=== PATIENT | female | born 1960 | race Caucasian/White ===

== ENCOUNTER 2021-03-05 11:36 | Emergency (ER) | payer SELFPAY ==
[2021-03-05] VITALS (10 sets, daily range): BP systolic 115–158; BP diastolic 73–104; PULSE 62–118; RESP 16–22; TEMP 36.9; O2SAT 93–96; BMI 33.2
--- NOTE | 2021-03-05 12:32 | ED_ITS ---
HPI - Abdominal Pain General: Chief Complaint: Abdominal Pain Stated Complaint: Nausea, vomiting, cramping Time Seen by Provider: 03/05/21 12:29 History of Present Illness: HPI narrative: Ms. Alcaraz is a 61-year-old lady with history of breast cancer approximately 10 years ago and abdominal surgeries include cholecystectomy who presents emerged department due to abdominal pain, nausea, vomiting. She reports symptoms have been going on for a number of mo nths and started without specific known provoking factors including specifically denying insect bite or preceding antibiotic use. She has foamy emesis that occurs at least every other day in addition to generalized left lower quadrant abdominal pain that seems to migrate. She does have diarrhea associated with this that has also been present severe onset of symptoms. She has not tried any anyh-sbo-cjulajs therapies. She has seen a PCP but has not had imaging performed. Overall the course of symptoms has persisted. Intensity is moderate. She endorses worse symptoms with anything touching her abdomen. No other specific exacerbating or alleviating factors identified. Review of Systems General: Reports: 10 or more systems reviewed and unremarkable except in HPI and below Physical Exam Narrative: EXAM NARRATIVE: GENERAL/CONSTITUTIONAL -mildly ill-appearing. No acute distress. Eyes -pale mucous membranes, no conjunctival injection ENMT - Atraumatic external nose and ears. Moist mucous membranes NECK - supple. trachea midline CARDIOVASCULAR - regular rate and rhythm. Peripheral pulses 2+ and equal RESPIRATORY -clear to auscultation bilaterally. No retractions or accessory muscle use. ABDOMEN/GI -generalized tenderness palpation MSK - Extremities without obvious deformity or tenderness to palpation SKIN - Warm, Dry NEURO - alert and appropriately oriented. Moves all extremities equally. Course ED course: - Patient was seen and evaluated by me at bedside - Patient placed on cardiac monitors, IV access obtained - Initial evaluation notable for somewhat ill appearance, no acute distress. Abdominal tenderness to palpation without evidence of surgical abdomen. -Symptom treatment ordered - Labs notable for no leukocytosis, mild microcytosis. Minimal abnormalities noted on metabolic panel. - Imaging notable for likely colonic mass at splenic flexure with adjacent enlarged lymph node concerning for cancer. - I updated the patient regarding CT results including specifically telling her about concern for cancer. She was still somewhat symptomatic so I ordered additional treatment. - During course of additional treatment the patient was noted to have an episode of marked tachycardia of unclear etiology with heart rate in the 150s. This re solved after 3 to 4 minutes and unfortunately was not captured on EKG however was present on telemetry - Based on this and new cancer diagnosis CTA ordered which was negative for PE. - Despite fluids patient had a recurrent episode with exertion - I recommended further inpatient evaluation due to this cardiac abnormality without specific explanation identified on laboratory or imaging studies. - The patient declined admission at this time and elected to leave AGAINST MEDICAL ADVICE. Based on my interaction with the patient she is competent to make medical decisions at this time. I have discussed risks and benefits of the further evaluation and hospitalization that I feel is needed. Patient verbalized understanding and continued to decline admission. She understands that she may return to the emergency department or any emergency department at any time. I have arranged for follow-up in surgery clinic at the earliest possible appointment which is Tuesday. - Patient discharged in fair condition with unclear explanation for heart rate abnormality. Vital Signs: Vital signs: Vital Signs Temperature 98.4 F 03/05/21 21:40 Pulse Rate 62 03/05/21 21:40 Respiratory Rate 18 03/05/21 21:40 Blood Pressure 150/90 03/05/21 21:40 Pulse Oximetry 94 03/05/21 21:40 MDM - Abdominal Pain Medical Records: Attestation: I reviewed the patient's medical records. Lab Data: Attestation: I reviewed the patient's lab results. Labs: Lab Results 03/05/21 03/05/21 03/05/21 13:16 13:42 13:42 WBC 9.4 10^3/uL 10^3/ uL (4.0-10.0) RBC 5.41 10^6/uL H 10 ^6/uL (4.1-5.3) Hgb 13.1 g/dL g/dL (11.5-15.3) Hct 43.3 % % (37.0-47.0) MCV 80.0 fl L fl (81-99) MCH 24.2 pg L pg (28.0-34.0) MCHC 30.3 g/dL g/dL (30.0-36.0) RDW 17.2 % H % (12.1-15.1) Plt Count 472 10^3/cmm H 10 ^3/cmm (130-400) MPV 9.1 fL fL (7.4-10.4) Neut % (Auto) 77.7 % % Lymph % (Auto) 13.2 % % [place] % (Auto) 7.7 % % Eos % (Auto) 0.6 % % Baso % (Auto) 0.4 % % Neut # (Auto) 7.32 10^3/uL 10^3 /uL (1.8-7.7) Lymph # (Auto) 1.3 10^3/uL 10^3/ uL (0.8-4.8) [place] # (Auto) 0.7 10^3/uL 10^3/ uL (0.2-0.9) Eos # (Auto) 0.1 10^3/uL 10^3/ uL (0.0-0.8) Baso # (Auto) 0.0 10^3/uL 10^3/ uL (0.0-0.1) Nucleated RBC % (a uto) 0 % % Nucleated RBCs # 0.0 /100WBC /100W BC Sodium 135 mmol/L L mmol /L (136-145) Potassium 4.0 mmol/L mmol/L (3.5-5.1) Chloride 97 mmol/L L mmol/ L (98-107) Carbon Dioxide 26 mmol/L mmol/L (22-29) Anion Gap 16.0 (5-19) BUN 10 mg/dL mg/dL (8-23) Creatinine 0.6 mg/dL mg/dL (0.5-0.9) GFR Calculation 102.0 mL/min mL/m in (90-130) Glucose 135 mg/dL H mg/dL (65-115) Calculated Osmolal ity 281 mOsm/kg L mOs m/kg (285-295) Calcium 9.2 mg/dL mg/dL (8.5-10.5) Magnesium Total Bilirubin 0.5 mg/dL mg/dL (0.15-1.2) AST 18 U/L U/L (0-32) ALT 16 U/L U/L (0-33) Alkaline Phosphata se 91 IU/L IU/L (35-105) Troponin T Baselin e Troponin T 120 Min [place] Troponin T Total Protein 7.3 g/dL g/dL (6.6-8.7) Albumin 3.3 g/dL L g/dL (3.5-5.2) Globulin 4.0 g/dL g/dL (1.3-4.6) Lipase 8 U/L L U/L (13-60) Urine Color Dark yellow (Yellow) Urine Appearance Hazy A (CLEAR) Urine pH 5 (5-7) Ur Specific Gravit y 1.025 (1.005-1.030) Urine Protein Trace (Negative) Urine Glucose (UA) Norm (Normal) Urine Ketones 1+ H (Negative) Urine Blood 3+ H (Negative) Urine Nitrate Negative (Negative) Urine Bilirubin 2+ H (Negative) Urine Urobilinogen 4 mg/dL H mg/dL (Negative) Ur Leukocyte [place] ase Trace H (Negative) Urine RBC 0-4 /hpf H /hpf (0-2) Urine WBC 5-10 /hpf H /hpf (0-5) Ur Squamous Epith Cells 5-10 /hpf H /hpf (0-5) Calcium Oxalate Cr ystal 3+ /hpf /hpf Amorphous Sediment Not Reportable Urine Bacteria 1+ /hpf H /hpf (NONE) Urine Mucus 2+ /hpf /hpf 03/05/21 03/05/21 03/05/21 17:18 17:18 19:45 WBC RBC Hgb Hct MCV MCH MCHC RDW Plt Count MPV Neut % (Auto) Lymph % (Auto) [place] % (Auto) Eos % (Auto) Baso % (Auto) Neut # (Auto) Lymph # (Auto) [place] # (Auto) Eos # (Auto) Baso # (Auto) Nucleated RBC % (a uto) Nucleated RBCs # Sodium Potassium Chloride Carbon Dioxide Anion Gap BUN Creatinine GFR Calculation Glucose Calculated Osmolal ity Calcium Magnesium 1.8 mg/dL mg/dL (1.7-2.3) Total Bilirubin AST ALT Alkaline Phosphata se Troponin T Baselin e 11 ng/L H ng/L (0-10) Troponin T 120 Min [place] 11.98 ng/L H ng/L (0-10) Delta Troponin T 0.98 ABS# ABS# (0-10) Total Protein Albumin Globulin Lipase Urine Color Urine Appearance Urine pH Ur Specific Gravit y Urine Protein Urine Glucose (UA) Urine Ketones Urine Blood Urine Nitrate Urine Bilirubin Urine Urobilinogen Ur Leukocyte [place] ase Urine RBC Urine WBC Ur Squamous Epith Cells Calcium Oxalate Cr ystal Amorphous Sediment Urine Bacteria Urine Mucus EKG Data ^: EKG 1: EKG interpretation date: 03/05/21 EKG interpretation time: 17:03 Interpretation: Twelve-lead EKG shows a regular rhythm with a rate of 92 GA interval prolonged at 303, QRS duration 136, QTc 529 Left axis deviation Interpretation: First-degree AV block. Sinus rhythm. Bundle branch block. EKG 2: Attestation: I personally reviewed and interpreted this EKG as follows: EKG interpretation date: 03/05/21 EKG interpretation time: 19:48 Interpretation: Twelve-lead EKG shows a regular rhythm at a rate of 75. GA interval 233, QRS duration 138, QTc 467 Left axis deviation Interpretation: Sinus rhythm. First-degree AV block. Right bundle branch block. Discharge Plan Discharge Patient Disposition: Left Against Medical Advice Clinical Impression: Diarrhea, Abdominal pain, Mass of colon, Enlarged lymph node, Tachyarrhythmia, Abnormal ECG, Tachycardia Condition: Stable Prescriptions: New ondansetron 4 mg tablet,disintegrating 4 mg PO Q8H PRN (Reason: nausea and vomiting) 5 Days Qty: 15 RF: 0 No Action famotidine 10 mg tablet 10 mg PO BID PRN (Reason: Heartburn) RF: 0 Tylenol Ex Str Rapid Release 500 mg Tablet 1,000 mg PO DAILY PRN (Reason: Pain) RF: 0 ferrous sulfate [iron] 325 mg (65 mg iron) Tablet 325 mg PO DAILY PRN (Reason: unknown) RF: 0 ondansetron 4 mg tablet,disintegrating 4 mg PO Q12H PRN (Reason: Nausea And Vomiting) RF: 0 Referrals: Ruel Olmos MD [Physician] - 03/11/21 1:15 pm Uday Garner FNP [Primary Care Provider] - Discharge Diet: Clear Liquid Discharge Activity: Resume usual activity Patient Instructions: Abdominal Pain (ED) Activity Restrictions/Additional Instructions: Thank you for visiting the emergency department. You were seen and evaluated for diarrhea, fatigue, and abdominal pain. As discussed you have a very concerning mass on your colon and locally enlarged lymph nodes, additionally you have an indeterminate mass on your adrenal gland. The colon mass is very concerning for the possibility of cancer. This requires further evaluation. Follow-up with Dr. Olmos has been scheduled for Tuesday. Please be sure to make this appointment. As a somewhat incidental finding you were noted to have an abnormal EKG. Additionally your heart rate increases in a way that I would not expect and I do not have a complete explanation for. Therefore I recommend staying in the hospital for further evaluation with you are choosing to decline and leaving AGAINST MEDICAL ADVICE. Please ensure that you are staying hydrated. You will be given a prescription for nausea medication. Please return to the emergency department for any changes in symptoms, inability to pass gas or have a bowel movement, lightheadedness, dizziness, chest pain, shortness of breath, or anything else that you are concerned about and feel needs emergency department evaluation. Coding Level of Care Code ED General Neurologist for [facility]
--- NOTE | 2021-03-05 12:47 | PC.NURSE ---
Provider at bedside.
--- NOTE | 2021-03-05 12:54 | CTR_ITS ---
PROCEDURE INFORMATION: Exam: CT Abdomen And Pelvis With Contrast Exam date and time: 03/05/2021 12:54 PM Age: 61 years old Clinical indication: Abdominal pain; Additional info: Abdominal pain, n/v/d TECHNIQUE: Imaging protocol: Computed tomography of the abdomen and pelvis with contrast. Radiation optimization: All CT scans at this facility use at least one of these dose optimization techniques: automated exposure control; mA and/or kV adjustment per patient size (includes targeted exams where dose is matched to clinical indication); or iterative reconstruction. Contrast material: OMNI 350; Contrast volume: 95 ml; Contrast route: INTRAVENOUS (IV); COMPARISON: No relevant prior studies available. RADIATION DOSE METRICS: Total DLP (mGy-cm): 1696.88 FINDINGS: Lungs: Calcified granuloma noted in the right lung base. Liver: Hepatic steatosis. No mass. Gallbladder and bile ducts: Cholecystectomy. No ductal dilation. Pancreas: Normal. No ductal dilation. Spleen: Calcified granulomas noted in the spleen. No splenomegaly. Adrenal glands: There is a 2.6 x 2.3 cm right adrenal nodule which is indeterminate on single post-contrast phase study series 2, image 27. Kidneys and ureters: Normal. No hydronephrosis. Stomach and bowel: There is focal circumferential narrowing of the transverse colon at the area of the splenic flexure measuring roughly 3-4 cm. There is mucosal hyperenhancement all and wall thickening of the colon proximal is region as well as mild distension. The colon distal is region appears relatively decompressed compared to the rest of the colon. Findings raise suspicion for an underlying mass in this region with developing colonic obstruction. There is also a serpiginous structure adjacent to the mesenteric border the colon this region which has low internal attenuation resembling a thrombosed vessel series 2, image 30. There is also a low-attenuation lobulated mass in this region measuring 2.8 x 2.3 cm series 2, image 35 which raises suspicion for localized shorty metastasis. Several additional prominent lymph nodes are noted in this region for example, the 2nd largest node measures up to 1.4 cm in short axis series 2, image 44. Some fibrotic changes appear in this region as there appears to be tethering of a portion of the stomach to this region of the colon. Appendix: No evidence of appendicitis. Intraperitoneal space: Unremarkable. No free air. No significant fluid collection. Vasculature: Unremarkable. No abdominal aortic aneurysm. Lymph nodes: Please see stomach and bowel section. Urinary bladder: Unremarkable as visualized. Reproductive: Unremarkable as visualized. Bones/joints: No acute fracture. No aggressive osseous lesion. Soft tissues: Right breast implant noted. CT/CT abdomen pelvis w con* [id number] IMPRESSION: 1. Findings suspicious for focal stricturing and suspected underlying mass in the region of the transverse colon at the splenic flexure. This appears to be causing a low-grade colonic obstruction and there may be a superimposed colitis given mucosal hyperenhancement and wall thickening of the colon proximal to this location. In addition, there are findings suspicious for localized shorty metastasis and invasion of the adjacent mesenteric vessels. Would recommend further evaluation with colonoscopy. 2. Indeterminate 2.6 cm right adrenal nodule given suspected malignancy. This can be further evaluated with adrenal protocol CT/MRI. 3. Hepatic steatosis. Radiation Dose CTDIVOL = (mGy): DLP = 1696.88 (mGy-cm)
[2021-03-05 13:58] LABS: Basophils % 0.4 %; Eosinophils # 0.1 10^3/uL (0.0-0.8); Eosinophils % 0.6 %; Hematocrit 43.3 % (37.0-47.0); Hemoglobin 13.1 g/dL (11.5-15.3); Lymphocytes # 1.3 10^3/uL (0.8-4.8); Lymphocytes % 13.2 %; Mean Corpuscular HGB Conc 30.3 g/dL (30.0-36.0); Mean Corpuscular Hemoglobin 24.2 pg (28.0-34.0); Mean Platelet Volume 9.1 fL (7.4-10.4); Monocytes # 0.7 10^3/uL (0.2-0.9); Monocytes % 7.7 %; Neutrophils # 7.32 10^3/uL (1.8-7.7); Neutrophils % 77.7 %; Nucleated Red Blood Cells % 0 %; Platelet Count 472 10^3/cmm (130-400); Red Blood Count 5.41 10^6/uL (4.1-5.3); Red Cell Distribution Width 17.2 % (12.1-15.1); White Blood Count 9.4 10^3/uL (4.0-10.0)
--- NOTE | 2021-03-05 14:14 | PC.NURSE ---
started by KULWINDER Mitchell
[2021-03-05 14:24] LABS: Alanine Aminotransferase 16 U/L (0-33); Albumin Level 3.3 g/dL (3.5-5.2); Alkaline Phosphatase 91 IU/L (35-105); Blood Urea Nitrogen 10 mg/dL (8-23); Calcium 9.2 mg/dL (8.5-10.5); Carbon Dioxide 26 mmol/L (22-29); Chloride 97 mmol/L (98-107); Glucose 135 mg/dL (65-115); Lipase 8 U/L (13-60); Osmolality Calculated 281 mOsm/kg (285-295); Sodium 135 mmol/L (136-145); Total Bilirubin 0.5 mg/dL (0.15-1.2); Total Protein 7.3 g/dL (6.6-8.7)
[2021-03-05 14:30] LABS: Aspartate Amino Transferase 18 U/L (0-32)
[2021-03-05 14:46] LABS: Specific Gravity, Urine 1.025 (1.005-1.030); Urine Appearance Hazy (CLEAR); Urine Color Dark Yellow (Yellow); pH Urine 5 (5-7)
[2021-03-05 14:47] LABS: Add Urine Microscopic? YES; Bilirubin Urine 2+ (Negative); Blood Urine 3+ (Negative); Glucose Urine UA Norm (Normal); Ketones Urine 1+ (Negative); Leukocyte Esterase Urine Trace (Negative); Nitrate Urine Negative (Negative); Protein Urine Trace (Negative); Urobilinogen Urine 4 mg/dL (Negative)
[2021-03-05 14:48] LABS: Bacteria Urine 1+ /hpf; Calcium Oxalate Crystals Urine 3+ /hpf; Mucus Urine 2+ /hpf; RBC Urine 0-4 /hpf (0-2)
[2021-03-05 14:49] LABS: Add Urine Culture? Yes
[2021-03-05] MEDS: iohexol 350 mg/mL 100 mL Btl IV ×2 (14:56→18:04)
--- NOTE | 2021-03-05 16:00 | PC.PHAR ---
pt states she takes care of her own medications-pt states she doesnt take levemir anymore pt states not taken since dec 2020-ext med history shows last filled 01/08/21 25d/s for 40 units daily-
--- NOTE | 2021-03-05 16:46 | ECG_ITS ---
[facility] Test Date: 2021-03-05 Pat Name: Estella Alcaraz Department: Room: Gender: Female Traveling Clerk: : 1960 Requested By: Tenzin Noyola Order Number: [id number] Chivo MD: Spencer Morgan M.D. Measurements Intervals [place] Rate: 92 P: -37 NV: 303 QRS: -61 QRSD: 136 T: 75 QT: 426 QTc: 529 Interpretive Statements SINUS RHYTHM WITH MARKED SINUS ARRHYTHMIA WITH FIRST DEGREE AV BLOCK RIGHT BUNDLE BRANCH BLOCK [120+ ms QRS DURATION, UPRIGHT V1, 40+ ms S IN I/aVL/V4/V5/V6] LEFT ANTERIOR FASCICULAR BLOCK [QRS AXIS <= -45, QR IN I, RS IN II] LEFT VENTRICULAR HYPERTROPHY AND ST-T CHANGE [VOLTAGE CRITERIA PLUS ST/T ABNORMALITY] POSSIBLE SEPTAL MYOCARDIAL INFARCTION , OF INDETERMINATE AGE [30 ms Q WAVE IN V1/V2] No previous ECG available for comparison Electronically Signed On 03-05-2021 22:47:04 IN SCHOOL SUSPENSION AIDE by Spencer Morgan M.D. [id number]
--- NOTE | 2021-03-05 17:01 | CTR_ITS ---
PROCEDURE INFORMATION: Exam: CTA Chest With Contrast Exam date and time: 03/05/2021 5:01 PM Age: 61 years old Clinical indication: Other: Abnormal heart rhythm; Prior surgery; Surgery type: Breast; Additional info: Abnormal heart rhythm - acute, cancer TECHNIQUE: Imaging protocol: Computed tomographic angiography of the chest with contrast. 3D rendering (Not supervised by radiologist): MIP and/or 3D reconstructed images were created by the technologist. Radiation optimization: All CT scans at this facility use at least one of these dose optimization techniques: automated exposure control; mA and/or kV adjustment per patient size (includes targeted exams where dose is matched to clinical indication); or iterative reconstruction. Contrast material: OMNI 350; Contrast volume: 62 ml; Contrast route: INTRAVENOUS (IV); COMPARISON: CT abdomen pelvis w con* [id number] 03/05/2021 2:52 PM RADIATION DOSE METRICS: Total DLP (mGy-cm): 530.59 FINDINGS: Pulmonary arteries: Normal. No pulmonary emboli. Aorta: Unremarkable. No aortic aneurysm. No aortic dissection. Lungs: Calcified granuloma at the right lung base. 9 mm left perifissural nodule series 2, image 124. No consolidation. Pleural spaces: Unremarkable. No pneumothorax. No pleural effusion. Heart: Coronary artery calcifications noted. No cardiomegaly. No pericardial effusion. Lymph nodes: Unremarkable. No enlarged lymph nodes. Bones/joints: No acute fracture. No aggressive osseous lesion. Soft tissues: Right breast implant. CT/CT angio chest PE protcl [id number] IMPRESSION: 1. Negative for pulmonary embolism. No acute findings. 2. Indeterminate 9 mm left perifissural nodule. This could be further evaluated with PET-CT or follow-up CT imaging. Radiation Dose CTDIVOL = (mGy): DLP = 530.59 (mGy-cm)
[2021-03-05] MEDS: sodium chloride 0.9% 1,000 ML 999 ML IV (17:22)
[2021-03-05] MEDS: ondansetron 2 mg/ML SDV 2 mL 4 MG IVP (17:26)
[2021-03-05 18:25] LABS: Troponin(5th) Baseline 11 ng/L (0-10)
[2021-03-05 18:51] LABS: Magnesium 1.8 mg/dL (1.7-2.3)
[2021-03-05] MEDS: sodium chloride 0.9% (100 ml) 100 ML 50 ML (18:56)
[2021-03-05] MEDS: metoclopramide 5 mg/mL SDV 2 mL 10 MG IVP (18:56)
[2021-03-05 20:18] LABS: Troponin 5 2HR 11.98 ng/L (0-10); Troponin 5 2HR Delta 0.98 ABS# (0-10)
--- NOTE | 2021-03-05 22:46 | ECG_ITS ---
[facility] Test Date: 2021-03-05 Pat Name: Estella Alcaraz Department: Room: Gender: Female Behavioral Health Care Coordinator: : 1960 Requested By: Tenzin Noyola Order Number: [id number] Chivo MD: Spencer Morgan M.D. Measurements Intervals [place] Rate: 75 P: 60 MA: 233 QRS: -66 QRSD: 138 T: 57 QT: 417 QTc: 467 Interpretive Statements SINUS RHYTHM WITH FIRST DEGREE AV BLOCK WITH FREQUENT SUPRAVENTRICULAR PREMATURE COMPLEXES POSSIBLE LEFT ATRIAL ENLARGEMENT [-0.1mV P-WAVE IN V1/V2] RIGHT BUNDLE BRANCH BLOCK [120+ ms QRS DURATION, UPRIGHT V1, 40+ ms S IN I/aVL/V4/V5/V6] LEFT ANTERIOR FASCICULAR BLOCK [QRS AXIS <= -45, QR IN I, RS IN II] POSSIBLE SEPTAL MYOCARDIAL INFARCTION , OF INDETERMINATE AGE [30 ms Q WAVE IN V1/V2] Compared to ECG 03/05/2021 16:55:54 Sinus arrhythmia no longer present Left ventricular hypertrophy no longer present ST (T wave) deviation no longer present Myocardial infarct finding still present Electronically Signed On 03-05-2021 23:00:24 TELEPHONE TECHNICIAN by Spencer Morgan M.D. [id number]
--- NOTE | 2021-03-06 08:38 | DCPLANNER ---
senior logistics manager had message to schedule a follow up appointment for patient with general surgery. senior logistics manager called the general surgery clinic, spoke with Vane, gave clinic patients appointment information. A follow up appointment was scheduled for Tuesday, March 11, 2021 at 1:[address] Forde, at general surgery. senior logistics manager gave patient the appointment information.
--- NOTE | 2021-05-17 16:06 | DCPLANNER ---
Patient had a follow up appointment scheduled with general surgery - patient did attend appointment.
== END 2021-03-05 21:43 | disposition left against medical advice (07) ==
PROVIDERS: Physician Assistant; Emergency Provider Emergency Medicine; PCP Nurse Practitioner
DX: R10.9 Unspecified abdominal pain (principal); R19.7 Diarrhea, unspecified; K63.9 Disease of intestine, unspecified; R59.9 Enlarged lymph nodes, unspecified; R00.0 Tachycardia, unspecified; R94.31 Abnormal electrocardiogram [ECG] [EKG]
CPT/HCPCS: 71275; 74177; 80053; 81001; 83690; 83735; 84484; 85025; 87086; 93005; 96361; 96374; 96375; 99284; J2405; J2765; J7030; Q9967

== ENCOUNTER → 2021-03-12 09:58 | Outpatient (BNVA) | payer OTHER, SELFPAY | PROVIDERS: PCP Nurse Practitioner; Visit Provider Surgery | DX: Z20.822 Contact with and (suspected) exposure to COVID-19 (principal) | CPT/HCPCS: 87635 ==